=== PATIENT | female | born 1960 | race Caucasian/White ===

== ENCOUNTER → 2024-04-22 09:41 | Outpatient (REF) | payer OTHER, SELFPAY | LOC: RAD 09:41 | PROVIDERS: ATTENDING PHYSICIAN Family Medicine | DX: F17.210 Nicotine dependence, cigarettes, uncomplicated (principal) | CPT/HCPCS: 71271 ==

== ENCOUNTER → 2024-04-24 08:13 | Outpatient (REF) | payer OTHER, SELFPAY | LOC: WDC 08:13 | PROVIDERS: ATTENDING PHYSICIAN Family Medicine | DX: Z12.31 Encounter for screening mammogram for malignant neoplasm of breast (principal) | CPT/HCPCS: 77063; 77067 ==

== ENCOUNTER → 2024-07-27 16:26 | Outpatient (REF) | payer OTHER, SELFPAY | LOC: RAD 16:26 | PROVIDERS: ATTENDING PHYSICIAN Physician Assistant | DX: S30.1XXA Contusion of abdominal wall, initial encounter (principal); M54.9 Dorsalgia, unspecified | CPT/HCPCS: 71101 ==

== ENCOUNTER → 2025-04-28 08:03 | Outpatient (REF) | payer MEDICARE, SELFPAY | LOC: WDC 08:03 | PROVIDERS: ATTENDING PHYSICIAN Family Medicine | DX: Z12.31 Encounter for screening mammogram for malignant neoplasm of breast (principal) | CPT/HCPCS: 77063; 77067 ==

== ENCOUNTER → 2025-07-15 09:15 | Outpatient (REF) | payer MEDICARE, SELFPAY | LOC: RCS 09:15 | PROVIDERS: ATTENDING PHYSICIAN Internal Medicine Cardiovascular Disease; FAMILY PHYSICIAN Family Medicine | DX: R07.89 Other chest pain (principal) | CPT/HCPCS: 93017; 93350 ==

== ENCOUNTER → 2025-08-03 15:07 | Outpatient (REF) | payer MEDICARE, SELFPAY | LOC: RAD 15:07 | PROVIDERS: ATTENDING PHYSICIAN Family Medicine | DX: F17.210 Nicotine dependence, cigarettes, uncomplicated (principal); F17.200 Nicotine dependence, unspecified, uncomplicated | CPT/HCPCS: 71271 ==